=== PATIENT | male | born 1990 | race Caucasian/White ===

== ENCOUNTER 2017-10-10 22:55 | Emergency (ER) | payer OTHER ==
[~2017-10-10] VITALS: Ht 180.3 cm; Wt 66.0 kg
[2017-10-11] MEDS ORDERED: azithromycin 250mg tablet PO ONE
[2017-10-11] MEDS ORDERED: CefTRIAXone 250MG inj IM ONE
[2017-10-11 00:01] LABS: COLOR,URINE YELLOW (Yellow); GLUCOSE, URINE NEGATIVE (Neg); KETONES,URINE NEGATIVE (Neg); LEUKOCYTE ESTERASE ,URINE SMALL (Neg); NITRITES, URINE NEGATIVE (Neg); OCCULT BLOOD,URINE NEGATIVE (Neg); PROTEIN,URINE TRACE mg/dl (Neg); UROBILINOGEN,URINE 0.2 E.U/dL (0.2-1.0)
[2017-10-11 00:12] LABS: CLARITY,URINE SLIGHTLY CLOUDY (Clear); UA COLLECTION TYPE VOIDED
[2017-10-11 00:13] LABS: BACTERIA,URINE FEW /HPF (Neg); MUCUS STRANDS MODERATE /LPF (Neg); RBC,URINE NONE SEEN /HPF (0-2); SQUAMOUS EPITHELIAL CELL,UR FEW /LPF (FEW)
[2017-10-11] MEDS ORDERED: CefTRIAXone 250MG IM Kit w/LIDOcaine IM ONE (00:25)
[2017-10-11 00:30] VITALS: BP 135/76
[2017-10-11] MEDS ORDERED: ondansetron 4mg rapidly disintigrating tab PO ONE (01:20)
== END 2017-10-11 02:59 | disposition left against medical advice (07) ==
LOC: ER 22:56
DX: N45.1 Epididymitis (principal); Z87.891 Personal history of nicotine dependence
CPT/HCPCS: 36415; 76870; 81001; 87088; 87491; 87591; 96372; 99285; J0696; 81003

== ENCOUNTER 2019-11-19 22:07 | Emergency (ER) | payer MEDICAID, OTHER ==
[~2019-11-19] VITALS: Ht 180.3 cm; Wt 72.7 kg
--- NOTE | 2019-11-19 22:33 | NUR ---
U/S CALLED BACK AT 22:[address]
[2019-11-19 22:44] LABS: COLOR,URINE YELLOW (Yellow); GLUCOSE, URINE NEGATIVE (Neg); KETONES,URINE NEGATIVE (Neg); LEUKOCYTE ESTERASE ,URINE MODERATE (Neg); NITRITES, URINE NEGATIVE (Neg); OCCULT BLOOD,URINE NEGATIVE (Neg); PH,URINE 6.5 (4.8-8.0); PROTEIN,URINE NEGATIVE (Neg); UROBILINOGEN,URINE 0.2 E.U/dL (0.2-1.0)
[2019-11-19 22:49] LABS: UA COLLECTION TYPE CLN CATCH MIDSTREAM
[2019-11-19 22:50] LABS: CLARITY,URINE SLIGHTLY CLOUDY (Clear)
[2019-11-19 22:52] LABS: BACTERIA,URINE FEW /HPF (Neg); MUCUS STRANDS NONE SEEN /LPF (Neg); RBC,URINE 0-2 /HPF (0-2); SQUAMOUS EPITHELIAL CELL,UR FEW /LPF (FEW)
[2019-11-19 22:57] LABS: URINE AMPHETAMINE SCREEN NEGATIVE (Neg); URINE BARBITUATE SCREEN NEGATIVE (Neg); URINE BENZODIAZEPINES SCREEN NEGATIVE (Neg); URINE CANNABINOID SCREEN POSITIVE (Neg); URINE COCAINE SCREEN POSITIVE (Neg); URINE METHADONE SCREEN NEGATIVE (Neg); URINE OPIATE SCREEN NEGATIVE (Neg); URINE PHENCYCLIDINE SCREEN NEGATIVE (Neg)
[2019-11-19] MEDS ORDERED: DOXY100C43 PO (23:26)
[2019-11-19 23:36] VITALS: BP 142/97
== END 2019-11-19 23:37 | disposition home or self-care (01) ==
LOC: ER 22:08
DX: N45.1 Epididymitis (principal); F12.90 Cannabis use, unspecified, uncomplicated; F14.90 Cocaine use, unspecified, uncomplicated
CPT/HCPCS: 76870; 80305; 81001; 87088; 99284